=== PATIENT | male | born 1945 | race Caucasian/White ===

== ENCOUNTER 2019-03-31 07:20 | Observation (INO) ==
--- NOTE | 2019-03-31 07:29 | Emergency Department Note ---
Disposition Clinical Impression: Weakness, Elevated troponin Inguinal hernia Qualifiers: Obstruction and gangrene presence: without obstruction or gangrene Laterality: unilateral Recurrence: not specified as recurrent Qualified Code(s): K40.90 - Unilateral inguinal hernia, without obstruction or gangrene, not specified as recurrent Disposition: Admitted As Inpatient Condition: Fair Time of Disposition: 21:12 General Adult HPI - General Chief complaint: ED Abdominal Pain Stated complaint: tingling in fingers/ lower body pain Time Seen by Provider: 03/31/19 07:25 Source: patient Mode of arrival: ambulatory Limitations: no limitations, physical limitation Nursing Notes Reviewed: Yes Vital Signs Reviewed: Yes - History of Present Illness HPI Narrative: 73-year-old male presenting to the ED for one day of numbness and tingling bilateral distal upper extremities. Patient states he woke this morning and was eating breakfast when he noticed that he had numbness and tingling in both hands, patient states that he felt nauseous but did not vomit, patient also states that he noted that he is having bilateral inguinal pain which was consistent with his prior history of inguinal hernias. The patient states that he has a history of TIA, as well as prostate cancer that required prostate resection, patient followed with [facility] receiving radiation until approximately 1-2 years ago. Patient states that he has had multiple follow-ups without concern or complaint since that time for his history of prostate cancer. Patient has no other concerns or complaints at this time. Upon my initial evaluation patient sitting upright in hospital bed, speech appears to be slowed without being slurred, he has difficulty with finding answers to review of systems and history of present illness questioning although he does answer appropriately. Patient also complains of neck and back pain which is concerning giving his history of prostate cancer for metastases to the spine and possibly the brain. Cranial nerves are grossly intact pulse motor and sensation equal bilateral upper and lower extremities there are no lateralizing signs the patient is no acute distress. It is noted in the patient's chart that he is on aspirin and Plavix at this time. Onset (ago): day(s) Location: genitals Radiation: non-radiation Pain Scale: 2 (Patient states that his groin pain is one or 2 out of 10 when he is not moving and 10 out of 10 with palpation.) Associated symptoms: Reports: nausea/vomiting Treatments Prior to Arrival: none - Related Data Home Medications Medication Instructions Recorded Confirmed Amlodipine Besylate 5 mg PO DAILY 01/29/19 03/31/19 Clopidogrel [Plavix] 75 mg PO QPM 01/29/19 03/31/19 Atorvastatin Calcium [Lipitor] 80 mg PO DAILY 03/31/19 03/31/19 Allergies Allergy/AdvReac Type Severity Reaction Status Date / Time No Known Allergies Allergy Verified 01/29/19 10:33 Review of Systems: *See History of Present Illness for more detail Constitutional: Denies: fever, chills Cardiovascular: Denies: chest pain Respiratory: Denies: dyspnea, cough, hemoptysis Gastrointestinal: Patient admits to abdominal/groin pain. As well as nausea. Denies: vomiting, diarrhea, constipation, hematemesis, melena, hematochezia Genitourinary: Denies: hematuria Musculoskeletal: Denies: back pain, neck pain Neurological: Patient admits to weakness, and numbness and paresthesias. Denies: headache, lightheadedness/dizziness Endocrine: Admits: fatigue All systems ED: reviewed and negative except as stated. Review of Systems: As Per HPI Past Medical History - Past Medical History Medical history: Reports: other - Social History Smoking Status: Never smoker Smokeless Tobacco Status: No Alcohol use: Reports: none Drug use: Reports: none Physical Exam Constitutional: No acute distress, [id number], engaged to conversation, speech is fluid, answers questions appropriately although is slow to answer Neuro: GCS 15, CN II-XII are grossly intact, reflexes 2/4 in bilateral upper and lower extremities, strength 5/5 in bilateral upper and lower extremities. Cerebellar finger-nose testing is normal Head: Atraumatic, normocephalic Eyes: Pupils equal, round and reactive to light, external ocular muscles intact, no scleral icterus, no conjunctival injection, no nystagmus. Mouth: Mucous membranes are moist, oropharynx is without edema, erythema, or exudate. No tongue swelling, lip swelling, perioral cyanosis, drooling, or trismus. Neck: Trachea midline without deviation. Anterior neck is supple without swelling, no lymphadenopathy or thyromegaly noted. Chest: Symmetric chest wall rise Heart: Cardiac rhythm and rate are regular with S1 and S2 , no S3 or S4 appreciated, no murmurs, rubs, or clicks. Lungs: Lungs are clear to auscultation bilaterally, without accessory muscle use or prolonged expiratory phase. No wheezes or stridor appreciated. Abdomen: Abdomen is flat, soft to palpation, normal bowel sounds, no evidence of bruising, surgical incisions, or abnormal mass. No abdominal bruit auscultated. Non-distended, non-rigid, no organomegaly, no ascites appreciated. No pulsatile mass, no tenderness or guarding to palpation, no rebound Extremities: No pedal edema, joint swelling or erythema. Pulses/motor/sensory intact in all 4 extremities. Psychiatric exam: Patient displays a normal affect and mood for the environment. No overt signs of hallucination. Integumentary: warm, dry, intact, normal color. No rash, cyanosis, diaphoresis, erythema, or pallor - General Limitations: altered mental status General appearance: alert, in no apparent distress Course Course Narrative: CBC, BMP, hepatic panel, ammonia, EKG/old EKG, troponin, chest x-ray X-ray lumbar spine, CT head Urinalysis 1 L IV fluid, Tylenol for the management of patient's pain pending hepatic panel. - Reevaluation(s) Reevaluation #1: Patient noted to have elevated troponin level 0.04. We have no prior value from which to compare this to. Patient is noted to be on aspirin and Plavix for chronic dual antiplatelet therapy. We will give patient 324 mg of aspirin for cardiac prophylaxis at this time, trend troponins every 3 hours, obtain magnesium, phosphorus and TSH to further evaluate the potential etiology of this weakness and admit to hospitalist medicine service for further evaluation and management. Time: 08:38 Vital Signs Temperature 98.3 F 03/31/19 07:23 Pulse Rate 70 03/31/19 07:23 Respiratory Rate 28 03/31/19 07:23 Blood Pressure 147/72 03/31/19 07:23 O2 Sat by Pulse Oximetry 100 03/31/19 07:23 Temperature 97.6 F 03/31/19 19:33 Pulse Rate 66 03/31/19 19:33 Respiratory Rate 16 03/31/19 19:33 Blood Pressure 163/72 03/31/19 19:33 O2 Sat by Pulse Oximetry 96 03/31/19 19:33 Oxygen Delivery Oxygen Delivery Room Air Medical Decision Making - Lab Data Lab results reviewed: Yes I reviewed the patient's lab results. Result diagrams: 03/31/19 07:30 03/31/19 07:30 Lab Results 03/31/19 03/31/19 03/31/19 Range/Units 07:30 07:30 07:58 WBC 7.0 (4.3-11.1) K/mcL RBC 4.90 (4.19-5.50) M/mcL Hgb 15.3 (12.9-16.9) g/dL Hct 44.8 (37.5-50.1) % MCV 91.4 (83.0-100.0) fL MCH 31.2 (28.0-33.3) pg MCHC 34.2 (31.6-35.5) g/dL RDW 12.1 (11.5-14.5) % Plt Count 194 (140-400) K/mcL MPV 10.4 (9.4-12.4) fL Immature Gran % 0.3 (0-4) % Seg Neutrophils % 58.4 % Lymphocytes % 31.8 % Monocytes % 7.1 % Eosinophils % 2.1 % Basophils % 0.3 % Neutrophils # 4.1 (1.6-8.9) K/mcL Lymphocytes # 2.2 (0.6-4.6) K/mcL Monocytes # 0.5 (0.0-1.3) K/mcL Eosinophils # 0.2 (0.0-0.6) K/mcL Basophils # 0.0 (0.0-0.2) K/mcL Sodium 141 (136-145) mEq/L Potassium 3.6 (3.5-5.1) mEq/L Chloride 108 H (98-107) mEq/L Carbon Dioxide 21 L (23-29) mEq/L BUN 19 (8-23) mg/dL Creatinine 1.13 (0.70-1.30) mg/dL Est GFR ( Amer) > 60 (> 60) Est GFR (Non-Af Amer) > 60 (> 60) BUN/Creatinine Ratio 17 (6-26) Glucose 154 H (70-105) mg/dL Calculated Osmolality 297 (280-300) Calcium 9.4 (8.6-10.3) mg/dL Phosphorus 1.4 L (2.7-4.5) mg/dL Magnesium 2.1 (1.6-2.6) mg/dL Total Bilirubin 0.9 (0.3-1.0) mg/dL Direct Bilirubin 0.2 (0.0-0.2) mg/dL Indirect Bilirubin 0.7 (0.0-1.2) mg/dL AST 23 (13-39) Units/L ALT 25 (7-52) Units/L Alkaline Phosphatase 62 (34-104) Units/L Ammonia 32 (16-53) mcmol/L Troponin I 0.04 H* (< 0.04) ng/mL Serum Total Protein 6.7 (6.4-8.9) g/dL Albumin 4.2 (3.5-5.7) g/dL Globulin 2.5 (2.4-3.5) g/dL Albumin/Globulin Ratio 1.7 (1.1-2.2) TSH 1.915 (0.340-5.600) mcIU/mL Urine Color (Yellow) Urine Clarity (Clear) Urine pH (5.0-8.0) pH Units Ur Specific [place] (1.010-1.025) Urine Protein (Neg-Trace) mg/dL Urine Glucose (UA) (Normal) mg/dL Urine Ketones (Negative) mg/dL Urine Blood (Negative) Urine Nitrite (Negative) Urine Bilirubin (Negative) Urine Urobilinogen (Normal) mg/dL Ur Leukocyte Esterase (Negative) Ur Culture Indicated? (NO) 03/31/19 Range/Units 08:20 WBC (4.3-11.1) K/mcL RBC (4.19-5.50) M/mcL Hgb (12.9-16.9) g/dL Hct (37.5-50.1) % MCV (83.0-100.0) fL MCH (28.0-33.3) pg MCHC (31.6-35.5) g/dL RDW (11.5-14.5) % Plt Count (140-400) K/mcL MPV (9.4-12.4) fL Immature Gran % (0-4) % Seg Neutrophils % % Lymphocytes % % Monocytes % % Eosinophils % % Basophils % % Neutrophils # (1.6-8.9) K/mcL Lymphocytes # (0.6-4.6) K/mcL Monocytes # (0.0-1.3) K/mcL Eosinophils # (0.0-0.6) K/mcL Basophils # (0.0-0.2) K/mcL Sodium (136-145) mEq/L Potassium (3.5-5.1) mEq/L Chloride (98-107) mEq/L Carbon Dioxide (23-29) mEq/L BUN (8-23) mg/dL Creatinine (0.70-1.30) mg/dL Est GFR ( Amer) (> 60) Est GFR (Non-Af Amer) (> 60) BUN/Creatinine Ratio (6-26) Glucose (70-105) mg/dL Calculated Osmolality (280-300) Calcium (8.6-10.3) mg/dL Phosphorus (2.7-4.5) mg/dL Magnesium (1.6-2.6) mg/dL Total Bilirubin (0.3-1.0) mg/dL Direct Bilirubin (0.0-0.2) mg/dL Indirect Bilirubin (0.0-1.2) mg/dL AST (13-39) Units/L ALT (7-52) Units/L Alkaline Phosphatase (34-104) Units/L Ammonia (16-53) mcmol/L Troponin I (< 0.04) ng/mL Serum Total Protein (6.4-8.9) g/dL Albumin (3.5-5.7) g/dL Globulin (2.4-3.5) g/dL Albumin/Globulin Ratio (1.1-2.2) TSH (0.340-5.600) mcIU/mL Urine Color Yellow (Yellow) Urine Clarity Clear (Clear) Urine pH 7.0 (5.0-8.0) pH Units Ur Specific [place] 1.009 L (1.010-1.025) Urine Protein Negative (Neg-Trace) mg/dL Urine Glucose (UA) Normal (Normal) mg/dL Urine Ketones Negative (Negative) mg/dL Urine Blood Negative (Negative) Urine Nitrite Negative (Negative) Urine Bilirubin Negative (Negative) Urine Urobilinogen Normal (Normal) mg/dL Ur Leukocyte Esterase Negative (Negative) Ur Culture Indicated? NO (NO) - Radiology Data Radiology results reviewed: Yes I reviewed the patient's radiology results. Chest X-Ray 03/31/19 07:47 IMPRESSION: Small left pleural effusion versus pleural thickening at the left lung base. Mild cardiomegaly. D/ / Delvin Dominguez / Delvin Dominguez Interpreting Provider: Delvin Dominguez Head CT 03/31/19 07:47 IMPRESSION: No acute intracranial abnormality. D/ / Harris Ceballos MD / Harris Ceballos MD Interpreting Provider: Harris Ceballos MD Lumbar Spine X-Ray 03/31/19 07:47 IMPRESSION: 1. No acute findings in the lumbar spine. 2. Mild lumbar spine degenerative changes. 3. Bony demineralization. 4. 6 lumbar type vertebrae. D/ / Reuben Oro MD / Reuben Oro MD Interpreting Provider: Reuben Oro MD - EKG Data EKG #1 EKG attestation: Yes I reviewed and interpreted this EKG. EKG results narrative: The patient's EKG shows a sinus rhythm with a nonspecific intraventricular conduction delay with a heart of 73 bpm, MT interval of 192 ms, QRS duration of 116 ms, QT/QTc interval 422/465 ms respectively. There are no significant ST segment elevations, depressions, pathologic Q waves, abnormal T-wave inversions, nor any other signs of acute ischemic change. At this time there is no prior EKG available for comparison. Attestation Statement - Attestation Attestation: I, Mu Rossi, examined this patient and my medical decision-making was reviewed with the TECHNICAL EXPERT/PA/Advanced Practice Nurse/Resident Physician. I agree with the documented findings, disposition and treatment plan as described except to the extent set forth below. 73-year-old male presents emergency Department with concerns of acute onset weakness and tingling in the bilateral upper extremity in the fingers. Patient states symptoms started this morning after a eating breakfast. He denied chest pain or shortness of breath. No history of similar symptoms in the past. Paresthesias has improved by the time of his evaluation the emergency department however his weakness persisted. Patient denies recent fever, chills, nausea, vomiting, diarrhea, recent trauma, medication changes.I reviewed the EKG with the resident and agree with the interpretation. EKG did not show evidence of acute STEMI or other dysrhythmia. Initial troponin was mildly elevated. He is given aspirin and will be admitted to the hospitalist for further care and evaluation of his elevated troponin and weakness.
[2019-03-31] MEDS ORDERED: 0.9 % Sodium Chloride 1,000 ML IVC ONE (07:47)
[2019-03-31 08:00] LABS: Basophils % 0.3 %; Eosinophils # 0.2 K/mcL (0.0-0.6); Eosinophils % 2.1 %; Hematocrit 44.8 % (37.5-50.1); Hemoglobin 15.3 g/dL (12.9-16.9); Immature Granulocytes % 0.3 % (0-4); Lymphocytes # 2.2 K/mcL (0.6-4.6); Lymphocytes % 31.8 %; Mean Corpuscular HGB Conc 34.2 g/dL (31.6-35.5); Mean Corpuscular Hemoglobin 31.2 pg (28.0-33.3); Mean Corpuscular Volume 91.4 fL (83.0-100.0); Mean Platelet Volume 10.4 fL (9.4-12.4); Monocytes # 0.5 K/mcL (0.0-1.3); Monocytes % 7.1 %; Neutrophils # 4.1 K/mcL (1.6-8.9); Platelet Count 194 K/mcL (140-400); Red Cell Distribution Width 12.1 % (11.5-14.5); Segmented Neutrophils % 58.4 %
[2019-03-31 08:23] LABS: Alanine Aminotransferase 25 Units/L (7-52); Albumin 4.2 g/dL (3.5-5.7); Albumin/Globulin Ratio 1.7 (1.1-2.2); Alkaline Phosphatase 62 Units/L (34-104); Aspartate Amino Transferase 23 Units/L (13-39); BUN/Creatinine Ratio 17 (6-26); Bilirubin,Direct 0.2 mg/dL (0.0-0.2); Bilirubin,Indirect 0.7 mg/dL (0.0-1.2); Bilirubin,Total 0.9 mg/dL (0.3-1.0); Blood Urea Nitrogen 19 mg/dL (8-23); Calcium 9.4 mg/dL (8.6-10.3); Carbon Dioxide 21 mEq/L (23-29); Chloride 108 mEq/L (98-107); Globulin 2.5 g/dL (2.4-3.5); Glucose 154 mg/dL (70-105); Osmolality,Calculated 297 (280-300); Potassium 3.6 mEq/L (3.5-5.1); Sodium 141 mEq/L (136-145); Total Protein 6.7 g/dL (6.4-8.9); eGFR For African Americans > 60 (> 60); eGFR For Non-African Americans > 60 (> 60)
[2019-03-31 08:29] LABS: Troponin I 0.04 ng/mL (< 0.04)
[2019-03-31 08:36] LABS: Bilirubin,Urine Negative (Negative); Blood,Urine Negative (Negative); Clarity,Urine Clear (Clear); Color,Urine Yellow (Yellow); Glucose,Urine (UA) Normal (Normal); Ketones,Urine Negative (Negative); Leukocyte Esterase,Urine Negative (Negative); Nitrite,Urine Negative (Negative); Protein,Urine Negative (Neg-Trace); Specific Gravity,Urine 1.009 (1.010-1.025); Urobilinogen,Urine Normal (Normal)
[2019-03-31] MEDS ORDERED: Aspirin 81 MG TAB.CHEW ONE (08:54)
[2019-03-31] MEDS: Aspirin 81 MG TAB.CHEW PO SCH ×2 (08:55→09:03)
[2019-03-31 09:25] LABS: Magnesium 2.1 mg/dL (1.6-2.6); Phosphorous 1.4 mg/dL (2.7-4.5); Thyroid Stimulating Hormone 1.915 mcIU/mL (0.340-5.600)
--- NOTE | 2019-03-31 10:04 | Internal Med History&Physical ---
Date of Encounter: 03/31/19 Time of Encounter: 10:02 Internal Medicine - H&P: HPI History of present illness: Mr. Jacobson is a 73 year old male with history of prostate cancer, hypertension, presented to ED for acute onset of numbness/tingling of fingers of both arms. This accompanied by episode of diffuse weakness and an episode of nausea without vomiting. He denies chest pain, SOB, vomiting, fevers, headache, neck pain/stiffness, blurry vision, focal weakness, slurred speech. In the ED t roponin was borderline elevated at 0.04. EKG did not show any ischemic changes. CBC and BMP were relatively unremarkable to explain findings, and a TSH was within normal limits. Past Med Surg Social Fam HX - Past Medical History Medical history: cancer, hyperlipidemia, TIA, other Additional medical history: Prostate Ca - Social History Smoking Status: Never smoker Smokeless Tobacco Status: No Alcohol use: none Drug use: none Internal Medicine - H&P: Meds Aspirin [Lo-Dose Aspirin EC] 1 tab PO DAILY 05/10/17 [History] Cholecalciferol (Vitamin D3) [Vitamin D3] 1 tab PO DAILY 05/10/17 [History] Multivitamin 1 tab PO DAILY 05/10/17 [History] Acetaminophen [Tylenol Arthritis] 650 mg PO AD 06/08/17 [History] Sildenafil Citrate [Viagra] 50 mg PO AD 06/08/17 [History] Amlodipine Besylate 5 mg PO DAILY 01/29/19 [History] Clopidogrel [Plavix] 75 mg PO QPM 01/29/19 [History] Lipitor 1 tab PO DAILY 01/29/19 [History] Allergy/AdvReac Type Severity Reaction Status Date / Time No Known Allergies Allergy Verified 01/29/19 10:33 All Systems PM: A 10-system review of systems was performed and is negative for pertinent findings except as documented above in the HPI. - Constitutional Constitutional: weakness, no chills, no fever(s), no night sweats - EENT Eyes: no change in vision, no discharge, no pain, no photophobia Ears: no ear discharge, no ear pain, no tinnitus Nose, mouth and throat: no dysphagia, no nasal discharge, no neck pain, no sore throat - Cardiovascular Cardiovascular ROS IM: no chest pain, no diaphoresis, no dyspnea, no lightheadedness, no palpitations, no syncope - Respiratory Respiratory: no cough, no dyspnea, no wheezing, no excessive phlegm production - Gastrointestinal Gastrointestinal: nausea, no abdominal pain, no diarrhea, no hematemesis, no hematochezia, no melena, no vomiting - Musculoskeletal Musculoskeletal ROS IM: no numbness, no tingling - Integumentary Integumentary IM: no rash, no unusual bruising - Neurological Neurological ROS: numbness (fingers both hands), no confusion, no convulsions, no focal weakness, no tingling, no tremor(s) - Hematologic/Lymphatic Hematologic/Lymphatic: no easy bruising - Constitutional Vitals: Temp Pulse Resp BP Pulse Ox 98.3 F 64 19 152/65 98 03/31/19 07:23 03/31/19 08:58 03/31/19 08:57 03/31/19 08:58 03/31/19 09:02 General appearance: Present: A&O X 3, pleasant, no acute distress Exam: . - Head Head exam: Present: atraumatic, normocephalic - Eye Eye exam: Present: PERRL, conjuntiva pink, sclera anicteric Pupils: Present: PERRL - Neck Neck exam general surgery: Present: supple, trachea midline. Absent: lymphadenopathy - Respiratory Respiratory exam: Present: CTAB. Absent: accessory muscle use, rales, rhonchi, wheezes - Cardiovascular Cardiovascular exam: Present: RRR, +S1, +S2. Absent: diastolic murmur, gallop, rubs, systolic murmur - GI/Abdominal GI/Abdominal exam: Present: normal bowel sounds, soft, no peritoneal signs. Absent: distended, tenderness - Extremities Exam Extremities exam: Present: warm, radial pulses palpable and symmetrical. Absent: calf tenderness, cyanotic, pedal edema - Neurological Exam Neurological exam: Present: CN II-XII intact, oriented X3, no focal deficits. Absent: pronater drift, facial droop, speech deficit - Skin Skin exam: Present: dry, intact Internal Med - H&P Results - Labs CBC & Chem 7: 03/31/19 07:30 03/31/19 07:30 Labs: Short CBC 03/31/19 Range/Units 07:30 WBC 7.0 (4.3-11.1) K/mcL Hgb 15.3 (12.9-16.9) g/dL Hct 44.8 (37.5-50.1) % Plt Count 194 (140-400) K/mcL Neutrophils # 4.1 (1.6-8.9) K/mcL BMP 03/31/19 07:30 Sodium 141 Potassium 3.6 Chloride 108 H Carbon Dioxide 21 L BUN 19 Creatinine 1.13 Glucose 154 H Calcium 9.4 Cardiac Enzymes 03/31/19 Range/Units 07:30 Troponin I 0.04 H* (< 0.04) ng/mL Liver Function 03/31/19 Range/Units 07:30 Total Bilirubin 0.9 (0.3-1.0) mg/dL Direct Bilirubin 0.2 (0.0-0.2) mg/dL AST 23 (13-39) Units/L ALT 25 (7-52) Units/L Alkaline Phosphatase 62 (34-104) Units/L Albumin 4.2 (3.5-5.7) g/dL Urine 03/31/19 Range/Units 08:20 Urine Color Yellow (Yellow) Urine Clarity Clear (Clear) Urine pH 7.0 (5.0-8.0) pH Units Ur Specific [place] 1.009 L (1.010-1.025) Urine Protein Negative (Neg-Trace) mg/dL Urine Glucose (UA) Normal (Normal) mg/dL - Impressions ITS Impressions Chest X-Ray 03/31/19 07:47 IMPRESSION: Small left pleural effusion versus pleural thickening at the left lung base. Mild cardiomegaly. D/ / Delvin Dominguez / Delvin Dominguez Interpreting Provider: Delvin Dominguez Head CT 03/31/19 07:47 IMPRESSION: No acute intracranial abnormality. D/ / Harris Ceballos MD / Harris Ceballos MD Interpreting Provider: Harris Ceballos MD Lumbar Spine X-Ray 03/31/19 07:47 IMPRESSION: 1. No acute findings in the lumbar spine. 2. Mild lumbar spine degenerative changes. 3. Bony demineralization. 4. 6 lumbar type vertebrae. D/ / Reuben Oro MD / Reuben Oro MD Interpreting Provider: Reuben Oro MD - Assessment and Plan (1) Elevated troponin Current Visit: Yes Status: Acute Assessment and plan: Patient had complaints of numbness and tingling in both hands at the level of fingers briefly with episodes of nausea. EKG did not show any acute ischemic changes. Although this is atypical presentation, ACS should be ruled out with cycled troponin. With the episode of weakness, he may benefit from an echo cardiogram. (2) Inguinal hernia Current Visit: Yes Status: Acute Assessment and plan: Will need outpatient Gen Surgery follow-up. Qualifiers: Obstruction and gangrene presence: without obstruction or gangrene Laterality: unilateral Recurrence: not specified as recurrent Qualified Code(s): K40.90 - Unilateral inguinal hernia, without obstruction or gangrene, not specified as recurrent (3) Weakness Current Visit: Yes Status: Acute Assessment and plan: Obtain B12, iron, vit D levels. PT/OT evaluation, cardiac workup as above. (4) DVT prophylaxis Current Visit: Yes Status: Acute Assessment and plan: SQ heparin. - Time Spent With Patient Total time spent is greater than 50% in coordination of care (as documented) at patient's floor/unit and/or counseling patient:
[2019-03-31] MEDS ORDERED: Naloxone 0.4 MG/ML INJ IVP PRN (10:39)
[2019-03-31] MEDS ORDERED: Nitroglycerin 0.4 MG TAB.SUBL SL PRN (10:55)
[2019-03-31 17:10] LABS: Troponin I 0.03 ng/mL (< 0.04)
[2019-03-31] MEDS: *HR* Heparin 5,000 UNIT/ML VIAL SQ SCH (17:58)
[2019-04-01] MEDS: *HR* Heparin 5,000 UNIT/ML VIAL SQ SCH (04:52)
[2019-04-01 04:56] LABS: Hematocrit 42.2 % (37.5-50.1); Mean Corpuscular HGB Conc 33.2 g/dL (31.6-35.5); Mean Corpuscular Hemoglobin 31.1 pg (28.0-33.3); Mean Corpuscular Volume 93.8 fL (83.0-100.0); Mean Platelet Volume 10.2 fL (9.4-12.4); Platelet Count 169 K/mcL (140-400); Red Cell Distribution Width 12.3 % (11.5-14.5); White Blood Count 5.8 K/mcL (4.3-11.1)
[2019-04-01 05:11] LABS: BUN/Creatinine Ratio 17 (6-26); Blood Urea Nitrogen 19 mg/dL (8-23); Calcium 8.5 mg/dL (8.6-10.3); Carbon Dioxide 25 mEq/L (23-29); Chloride 111 mEq/L (98-107); Glucose 96 mg/dL (70-105); Osmolality,Calculated 294 (280-300); Sodium 141 mEq/L (136-145); eGFR For African Americans > 60 (> 60); eGFR For Non-African Americans > 60 (> 60)
--- NOTE | 2019-04-01 07:45 | Internal Med Progress Note ---
Hospitalist Progress Note - Encounter Date of Encounter: 04/01/19 - Subjective Interval History: Patient states that he feels great today with resolution of all symptoms he was experiencing yesterday. - Exam Vitals: Temp Pulse Resp BP Pulse Ox 98.0 F 64 16 135/68 96 04/01/19 07:14 04/01/19 07:14 04/01/19 07:14 04/01/19 07:14 04/01/19 07:14 Exam: Gen.: Middle-aged male. No acute distress Eyes: PERRL. no icterus Cardio: Second heart sound was increased in volume-sounded like a mechanical valve. Potential 1/6 systolic murmur best heard over aortic post but this was only heard during certain beats. No other murmur, gallop, rub. No carotid bruits. Respiratory: CTA throughout. Nonlabored breathing Extremities: Capillary refill less than 2 seconds bilateral upper extremities. No lower extremities edema. Neuro: Cranial nerves II, 3, 4, 6, 5, 7, 8, 9, 10, 11, and 12 intact. Finger to nose testing bilaterally equal and intact. Sensation (specific dermatomal patterns of hands not tested) and strength upper and lower extremities grossly intact to light touch . 2+ brachial radialis and triceps reflexes. 4+ patellar reflexes. negative babinski. Psychiatric: Appropriate mood and behavior. Answers questions coherently. - Assessment and Plan (1) Paresthesias Current Visit: Yes Status: Acute Assessment and Plan: -Consider secondary to cervical spinal cord compression -Paresthesias of bilateral upper extremities. Exam showed 4+ hyperreflexia of patellar reflexes. Plan: CT with contrast of cervical spine. (2) Elevated troponin Current Visit: Yes Status: Acute Assessment and Plan: -Consider secondary to type II in STEMI -History of TIA and hyperlipidemia. -First troponin 0.04 with following two WNL at 0.03. Initial EKG read as having no acute ischemic changes. Plan: Telemetry. Continue to monitor for concerning symptoms. (3) Inguinal hernia Current Visit: Yes Status: Acute Assessment and Plan: -Recurrent according to patient history -Consider repeat outpatient repair (4) Abnormal second heart sound (S2) Current Visit: Yes Status: Acute - Time Spent with Patient Total time spent is greater than 50% in coordination of care (as documented) at patient's floor/unit and/or counseling patient: Internal Medicine: Result - Labs CBC & Chem 7: 04/01/19 04:33 04/01/19 04:33 Labs: Short CBC 03/31/19 04/01/19 Range/Units 07:30 04:33 WBC 7.0 5.8 (4.3-11.1) K/mcL Hgb 15.3 14.0 (12.9-16.9) g/dL Hct 44.8 42.2 (37.5-50.1) % Plt Count 194 169 (140-400) K/mcL Neutrophils # 4.1 (1.6-8.9) K/mcL BMP 03/31/19 04/01/19 07:30 04:33 Sodium 141 141 Potassium 3.6 4.0 Chloride 108 H 111 H Carbon Dioxide 21 L 25 BUN 19 19 Creatinine 1.13 1.11 Glucose 154 H 96 Calcium 9.4 8.5 L Cardiac Enzymes 03/31/19 03/31/19 03/31/19 Range/Units 07:30 10:28 16:05 Troponin I 0.04 H* 0.03 0.03 (< 0.04) ng/mL Liver Function 03/31/19 Range/Units 07:30 Total Bilirubin 0.9 (0.3-1.0) mg/dL Direct Bilirubin 0.2 (0.0-0.2) mg/dL AST 23 (13-39) Units/L ALT 25 (7-52) Units/L Alkaline Phosphatase 62 (34-104) Units/L Albumin 4.2 (3.5-5.7) g/dL Urine 03/31/19 Range/Units 08:20 Urine Color Yellow (Yellow) Urine Clarity Clear (Clear) Urine pH 7.0 (5.0-8.0) pH Units Ur Specific [place] 1.009 L (1.010-1.025) Urine Protein Negative (Neg-Trace) mg/dL Urine Glucose (UA) Normal (Normal) mg/dL - Impressions Impressions Chest X-Ray 03/31/19 07:47 IMPRESSION: Small left pleural effusion versus pleural thickening at the left lung base. Mild cardiomegaly. D/ / Delvin Dominguez / Delvin Dominguez Interpreting Provider: Delvin Dominguez Head CT 03/31/19 07:47 IMPRESSION: No acute intracranial abnormality. D/ / Harris Ceballos MD / Harris Ceballos MD Interpreting Provider: Harris Ceballos MD Lumbar Spine X-Ray 03/31/19 07:47 IMPRESSION: 1. No acute findings in the lumbar spine. 2. Mild lumbar spine degenerative changes. 3. Bony demineralization. 4. 6 lumbar type vertebrae. D/ / Reuben Oro MD / Reuben Oro MD Interpreting Provider: Reuben Oro MD Consult Discharge Plan - Plan [facility]errals: [facility]Primary Care Provider[facility] - ___ (3) Inguinal hernia Qualifiers: Obstruction and gangrene presence: without obstruction or gangrene Laterality: unilateral Recurrence: not specified as recurrent Qualified Code(s): K40.90 - Unilateral inguinal hernia, without obstruction or gangrene, not specified as recurrent
--- NOTE | 2019-04-01 07:46 | Discharge Summary ---
Orders not resulted at time of discharge: Pending orders 03/31/19 16:05 Vitamin B1 (Thiamine) Whole Bl Routine 04/02/19 04:00 BMP [Basic Metabolic Panel] AM 0400 CBC no Diff [Complete Blood Count w/o Diff] [HEME] AM 0400 Date of Encounter: 04/01/19 Hospital course: Mr. Jacobson is a 73 year old male - Time Spent with Patient Total time spent providing and/or coordinating discharge services: - Discharge Medications Prescriptions: No Action Clopidogrel [Plavix] 75 mg PO QPM Amlodipine Besylate 5 mg PO DAILY Atorvastatin Calcium [Lipitor] 80 mg PO DAILY Home Medications: Amlodipine Besylate 5 mg PO DAILY 01/29/19 [History] Clopidogrel [Plavix] 75 mg PO QPM 01/29/19 [History] Atorvastatin Calcium [Lipitor] 80 mg PO DAILY 03/31/19 [History] Allergies/Adverse Reactions: Allergy/AdvReac Type Severity Reaction Status Date / Time No Known Allergies Allergy Verified 01/29/19 10:33 Date of admission: 03/31/19 10:22 [facility] care physician: [facility] Consults: 03/31/19 10:49 Consult to Occupational Therapy [CONS] Routine Comment: Evaluate, develop and implement POC Reason for Consult: Evaluate, develop and implement POC Does patient have active BEDREST order?: No Is patient medically & hemodynamically stable?: Yes Consult to Physical Therapy [CONS] Routine Comment: Evaluate, develop and implement POC Reason for Consult: Disposition planning. Therapy - weakness in bed. Does patient have active BEDREST order?: No Is patient medically & hemodynamically stable?: Yes - Constitutional Vitals: Temp Pulse Resp BP Pulse Ox 98.0 F 64 16 135/68 96 04/01/19 07:14 04/01/19 07:14 04/01/19 07:14 04/01/19 07:14 04/01/19 07:14 General appearance: Present: A&O X 3, pleasant, no acute distress - Patient Status Condition: Fair - Discharge Instructions Follow Up With: [facility] [Primary Care Provider] -
[2019-04-01] MEDS ORDERED: amLODIPine 5 MG TABLET PO SCH (09:00)
[2019-04-01] MEDS ORDERED: Isovue-370 500 ML BOTTLE IVP ONE (09:34)
[2019-04-01 11:11] VITALS: BP 122/70
--- NOTE | 2019-04-01 15:03 | Discharge Summary ---
<Cesar Iglesias - Last Filed: 04/01/19 17:16> Orders not resulted at time of discharge: Pending orders 03/31/19 16:05 Vitamin B1 (Thiamine) Whole Bl Routine Date of Encounter: 04/01/19 - Discharge Diagnosis (1) Cervical radiculopathy due to degenerative joint disease of spine Priority: Primary Status: Acute (2) Weakness Priority: Secondary Status: Acute (3) Elevated troponin Status: Acute (4) Inguinal hernia Status: Acute Qualifiers: Obstruction and gangrene presence: without obstruction or gangrene Laterality: unilateral Recurrence: not specified as recurrent Qualified Code(s): K40.90 - Unilateral inguinal hernia, without obstruction or gangrene, not specified as recurrent (5) Paresthesias Priority: Secondary Status: Acute Hospital course: Mr. Jacobson is a 73 year old male - Time Spent with Patient Total time spent providing and/or coordinating discharge services: - Discharge Medications Prescriptions: Continued Clopidogrel [Plavix] 75 mg PO QPM Amlodipine Besylate 5 mg PO DAILY Atorvastatin Calcium [Lipitor] 40 mg PO DAILY Home Medications: Amlodipine Besylate 5 mg PO DAILY 01/29/19 [History] Clopidogrel [Plavix] 75 mg PO QPM 01/29/19 [History] Atorvastatin Calcium [Lipitor] 40 mg PO DAILY 03/31/19 [History] Allergies/Adverse Reactions: Allergy/AdvReac Type Severity Reaction Status Date / Time No Known Allergies Allergy Verified 04/01/19 16:19 Date of admission: 03/31/19 10:22 Primary care physician: [facility] Consults: 03/31/19 10:49 Consult to Occupational Therapy [CONS] Routine Comment: Evaluate, develop and implement POC Reason for Consult: Evaluate, develop and implement POC Does patient have active BEDREST order?: No Is patient medically & hemodynamically stable?: Yes Consult to Physical Therapy [CONS] Routine Comment: Evaluate, develop and implement POC Reason for Consult: Disposition planning. Therapy - weakness in bed. Does patient have active BEDREST order?: No Is patient medically & hemodynamically stable?: Yes - Constitutional Vitals: Temp Pulse Resp BP Pulse Ox 97.7 F 59 16 122/70 94 04/01/19 11:09 04/01/19 11:09 04/01/19 11:09 04/01/19 11:09 04/01/19 11:09 - Patient Status Disposition: Home, Self-Care Condition: Good - Discharge Instructions Follow Up With: [facility],PCP [Primary Care Provider] - - Attending Attestation I examined this patient and my medical decision-making was reviewed with the Resident Physician on 04/01/19. I agree with the documented findings, disposition and treatment plan as described except to the extent set forth below. Mr Jacobson has been in observation for bilateral upper extremity parasthesias. His troponins were negative. He has lower extremity hyper reflexia. He has been in work up at the [facility] for this issue. CT of neck showed no acute process. At this time he is afebrile with no symptoms. Exam: Alert. Comfortable. Mucus membranes dry. Heart reg. No wheeze. Plan: D/C home today with follow up at [facility]. <Rubén Vera G - Last Filed: 04/01/19 18:16> - NOTES TO OUTPATIENT PROVIDER Notes to Outpatient Provider: Patient presented with bilateral upper extremity paresthesias and weakness. Hyperreflexia was found on exam. CVA was ruled out with CT head. CT cervical spine significant only for bilateral foraminal narrowing at C5 and 6 and C6 and 7. No new meds. Thank you Orders not resulted at time of discharge: Pending orders 03/31/19 16:05 Vitamin B1 (Thiamine) Whole Bl Routine 04/02/19 04:00 BMP [Basic Metabolic Panel] AM 0400 CBC no Diff [Complete Blood Count w/o Diff] [HEME] AM 0400 Date of Encounter: 04/01/19 Time of Encounter: 09:00 - Discharge Diagnosis (1) Paresthesias Priority: Primary Status: Acute (2) Elevated troponin Priority: Secondary Status: Acute (3) Inguinal hernia Priority: Secondary Status: Acute Qualifiers: Obstruction and gangrene presence: without obstruction or gangrene Laterality: unilateral Recurrence: not specified as recurrent Qualified Code(s): K40.90 - Unilateral inguinal hernia, without obstruction or gangrene, not specified as recurrent (4) Abnormal second heart sound (S2) Priority: Secondary Status: Acute Hospital course: Mr. Jacobson is a 73 year old male who presented to the ED on 03/31/19 with complaints of bilateral upper extremity paresthesias, nausea, weakness. Past medical history of TIA, prostate cancer status post resection, hyperlipidemia. Patient was admitted for mildly increased troponins, inguinal hernia, and weakness. Vitals on admission significant for systolic blood pressure of 163. Troponins 0.04> 0.03> 0.03. Head CT was negative. Lumbar spine x-ray showed no acute findings. Patient was found to be hyperreflexic on exam. CT with contrast of cervical spine performed and showed only bilateral foraminal narrowing at C5-6 and C6-7. No canal stenosis. Patient recently had MRI of c ervical spine and plans to follow up outpatient with his PCP at the [facility]. Patient was agreeable and stable at discharge. - Time Spent with Patient Total time spent providing and/or coordinating discharge services: Date of admission: 03/31/19 10:22 Primary care physician: PCP [facility] Consults: 03/31/19 10:49 Consult to Occupational Therapy [CONS] Routine Comment: Evaluate, develop and implement POC Reason for Consult: Evaluate, develop and implement POC Does patient have active BEDREST order?: No Is patient medically & hemodynamically stable?: Yes Consult to Physical Therapy [CONS] Routine Comment: Evaluate, develop and implement POC Reason for Consult: Disposition planning. Therapy - weakness in bed. Does patient have active BEDREST order?: No Is patient medically & hemodynamically stable?: Yes Discharging clinician: Cesar Iglesias Anticipated date of discharge: 04/01/19 - Constitutional Vitals: Temp Pulse Resp BP Pulse Ox 97.7 F 59 16 122/70 94 04/01/19 11:09 04/01/19 11:09 04/01/19 11:09 04/01/19 11:09 04/01/19 11:09 General appearance: Present: A&O X 3, pleasant, no acute distress Exam: Gen.: Middle-aged male. No acute distress Eyes: PERRL. no icterus Cardio: Second heart sound was increased in volume-sounded like a mechanical valve. Potential 1/6 systolic murmur best heard over aortic post but this was only heard during certain beats. No other murmur, gallop, rub. No carotid bruits. Respiratory: CTA throughout. Nonlabored breathing Extremities: Capillary refill less than 2 seconds bilateral upper extremities. No lower extremities edema. Neuro: Cranial nerves II, 3, 4, 6, 5, 7, 8, 9, 10, 11, and 12 intact. Finger to nose testing bilaterally equal and intact. Sensation (specific dermatomal patterns of hands not tested) upper and lower extremities grossly intact to light touch . 2+ brachial radialis and triceps reflexes. 4+ patellar reflexes. negative babinski. MSK: Strength grossly intact upper and lower extremities bilaterally. Limited extension of right wrist. Psychiatric: Appropriate mood and behavior. Answers questions coherently. - Patient Status Functional capacity at discharge: independent ambulation Overall status at discharge: patient is back to baseline - Diet and Activity Activity: increase activity as tolerated Diet: low fat, low cholesterol, low salt diet
--- NOTE | 2019-04-03 13:28 | Electrocardiograph Report ---
[address] [address] Test Date: 2019-03-31 Pat Name: Leonid Jacobson Department: [id number] Room: 3B45 Gender: M [employer] Supervisor: : [id number] Requested By: Navin Andersen Order Number: [id number] Reading MD: Oli Carvajal Measurements Intervals [place] Rate: 73 P: 61 WA: 192 QRS: 59 QRSD: 116 T: 52 QT: 422 QTc: 465 Interpretive Statements Sinus rhythm Electronically Signed On 04-03-2019 13:27:39 EDT by Oli Carvajal
== END 2019-04-01 16:13 | disposition home or self-care (01) ==
LOC: EMEROOARM 07:20 → 3BNU 07:20 → SUATTDRO 10:22 → 3BNU 11:43
PROVIDERS: ADMIT Student in an Organized Health Care Education/Training Program; ATTEND Internal Medicine